=== PATIENT | female | born 1980 | race Caucasian/White ===

== ENCOUNTER 2019-08-27 11:28 | Emergency (ER) | payer OTHER, SELFPAY ==
[2019-08-27 11:30] VITALS: BP 163/92; PULSE 74; RESP 16; TEMP 36.2; O2SAT 97
[2019-08-27] MEDS: FAMOTIDINE 20 MG TABLET PO (11:55)
[2019-08-27] MEDS: predniSONE 20 MG TABLET 60 MG PO (11:55)
--- NOTE | 2019-08-27 13:04 | ED.GENADULT ---
HPI - General Adult General Chief complaint: Skin/Abscess/Foreign Body Stated complaint: Bite, Sent by PCP Time Seen by Provider: 08/27/19 11:30 Source: patient Mode of arrival: ambulatory Limitations: no limitations History of Present Illness HPI narrative: Patient is a 39-year-old female who presents to emergency department for evaluation of bite to the right forearm with redness and swelling that began after the bite woke with the bite notes some itching and burning has not taken anything for her symptoms patient tried cleaning with hydrogen peroxide patient was referred to emergency department for evaluation per request of primary care Related Data Allergies Allergy/AdvReac Type Severity Reaction Status Date / Time Penicillins Allergy Hives Verified 08/27/19 11:43 Sulfa (Sulfonamide Allergy Anaphylactic Verified 08/27/19 11:43 Antibiotics) Shock Review of Systems Review of Systems: All systems reviewed & are unremarkable except as noted in HPI and below PMFSH Social History Social History (Updated 08/27/19 @ 13:05 by Michel Meneses PA-C) Smoking status: Current every day smoker Gender identity (if verbalized by the patient): Female Exam Narrative: Exam Narrative: GENERAL: Well-appearing, well-nourished, and in no acute distress. HEAD: Normocephalic, atraumatic. EYES: PERRLA and EOMI. ENT: Nares clear, no rhinorrhea or epistaxis. Mucous membranes moist. EXTREMITIES: Normal range of motion. No edema. SKIN: Warm, dry, no rash. Patient with 1 cm in diameter red tender area with slight swelling around it nonfluctuant consistent with insect bite no lymphangitic streaking NEURO: No focal deficits. Alert and oriented x3. Neurovascularly intact PSYCH: Normal mood and affect. The patient Course Course Emergency Course: Patient in the room in no distress aware of case findings treatment plan and diagnosis agreeing to follow-up as directed or to return if symptoms worsen or concerns Vital Signs Vital signs: Vital Signs Temperature 97.1 F L 08/27/19 11:30 Pulse Rate 74 08/27/19 11:30 Respiratory Rate 16 08/27/19 11:30 Blood Pressure 163/92 H 08/27/19 11:30 Pulse Oximetry 97 08/27/19 11:30 Temperature 97.1 F L 08/27/19 11:30 Pulse Rate 74 08/27/19 11:30 Respiratory Rate 16 08/27/19 11:30 Blood Pressure 163/92 H 08/27/19 11:30 Pulse Oximetry 97 08/27/19 11:30 Medical Decision Making MDM Narrative Medical decision making narrative: Patient with likely insect bite with allergic response felt appropriate for outpatient reevaluation advised to follow with primary care is agreeing to do so patient is afebrile nontoxic-appearing no distress and felt appropriate for outpatient reevaluation Vital Signs Vital Signs: Vital Signs Temperature 97.1 F L 08/27/19 11:30 Pulse Rate 74 08/27/19 11:30 Respiratory Rate 16 08/27/19 11:30 Blood Pressure 163/92 H 08/27/19 11:30 Pulse Oximetry 97 08/27/19 11:30 Temperature 97.1 F L 08/27/19 11:30 Pulse Rate 74 08/27/19 11:30 Respiratory Rate 16 08/27/19 11:30 Blood Pressure 163/92 H 08/27/19 11:30 Pulse Oximetry 97 08/27/19 11:30 Discharge Plan Discharge Clinical Impression: Insect bites Patient Disposition: Home, Self-Care Condition: Stable Instructions: Antibiotic Form, Insect Bite or Sting (ED) Additional Instructions: Follow up with primary care in the next 2-3 days for re-evaluation Follow patient education sheets return if symptoms worsen or concerns, any increase in redness swelling pain or fever over 100.5 Clean wound with mild soapy water. Apply antibiotic ointment and clean dressing at least three times daily Follow patient education sheets Use topical cortisone cream for itching Prescriptions: New famotidine [Pepcid] 20 mg tablet 20 mg PO BID Qty: 7 RF: 0 loratadine [Claritin] 10 mg tablet 10 mg PO DAILY PRN (Reason: allergy symptoms) Qty: 7 RF: 0 Follow-up/[facility]
== END 2019-08-27 13:26 | disposition home or self-care (01) ==
PROVIDERS: Emergency Provider Emergency Medicine; PCP Family Medicine
DX: S50.861A Insect bite (nonvenomous) of right forearm, initial encounter (principal); W57.XXXA Bitten or stung by nonvenomous insect and other nonvenomous arthropods, initial encounter
CPT/HCPCS: 99283; A9270; J7512

== ENCOUNTER 2020-10-23 07:46 | Outpatient (CLI) | payer OTHER, SELFPAY ==
--- NOTE | ~2020-10-23 | XR_ITS ---
XR abdomen/kub 1V 10/23/2020 08:07 INDICATION: Gross hematuria TECHNIQUE: KUB COMPARISON: None FINDINGS: Bowel gas pattern is normal. There are cholecystectomy clips. There is no evidence of free air, mass, organomegaly, ascites or obstruction. No abnormal calculi are seen. The bones appear int act. Moderate colonic fecal loading. There are cholecystectomy clips. IMPRESSION: 1: No acute abdominal abnormality identified. Reviewed, dictated and finalized at location A.
--- NOTE | ~2020-10-23 | CT_ITS ---
EXAMINATION: CT abdomen pelvis wo/w con DATE: 10/23/2020 08:40 INDICATION: Gross hematuria TECHNIQUE: Computed tomography (CT) of the abdomen and pelvis was performed without intravenous contr ast. CT of the abdomen and pelvis was then performed with a total of 130 mL Omnipaque 350 intravenous contrast using a double-bolus technique for simultaneous opacification of the renal parenchyma and r enal collecting system. The dose-length product (DLP) was 2139.08 mGy-cm. Automated exposure control and iterative reconstruction technique were employed. COMPARISON: None FINDINGS: The lung bases are clear. The heart size is normal. The gallbladder is surgically absent. T here is mild enlargement of the common bile duct and central intrahepatic ducts which is likely due t o post cholecystectomy state. Punctate calcifications in otherwise normal appearing liver and spleen likely represent healed granulomatous disease. The pancreas is unremarkable. There are low density ma sses of the adrenal glands, measuring up to 1.4 cm on the left, consistent with adenomas. No suspicio us renal or urothelial lesion is identified. No stones are identified in the kidneys, ureters, or christine dder. There is no hydronephrosis or hydroureter. A septate uterus is noted. No pathologically enlarge d abdominal or pelvic lymph nodes are identified. There is no free intraperitoneal gas or evidence of bowel obstruction. IMPRESSION: 1. No CT correlate for the patient's symptoms. Reviewed, dictated and finalized at location A.
[2020-10-23 08:16] LABS: Estimated Glomerular Filt Rate > 60
== END 2020-10-23 07:47 | disposition home or self-care (01) ==
LOC: ANHIMG 07:53
PROVIDERS: PCP Family Medicine; Visit Provider Nurse Practitioner Adult Health
DX: R31.0 Gross hematuria (principal)
CPT/HCPCS: 74018; 74178; Q9967

== ENCOUNTER 2022-03-12 07:58 | Emergency (ER) | payer OTHER, SELFPAY ==
--- NOTE | ~2022-03-12 | CT_ITS ---
EXAMINATION: CT abdomen pelvis wo con DATE: 03/12/2022 11:43 INDICATION: Right flank pain. Right groin pain. Hematuria. TECHNIQUE: Computed tomography (CT) of the abdomen and pelvis was performed without intravenous contr ast. Automated exposure control and iterative reconstruction technique were employed. The dose-length product was 421.79 mGy-cm. COMPARISON: CT abdomen and pelvis 10/23/2020 FINDINGS: The visualized portions of the lung bases demonstrate mild atelectasis. No pleural effusion . The heart size is normal. No pericardial effusion. Calcifications in the liver and spleen are consi stent with old granulomatous disease. There are changes of cholecystectomy. The pancreas and right ad renal gland are normal. There is a 14 mm mass in left adrenal gland measuring low attenuation, consis tent with an adenoma. The kidneys are normal. There is no urolithiasis. There is diverticulosis of th e colon without evidence of diverticulitis. There are no dilated loops of bowel. The appendix is norm al. There are no pathologically enlarged lymph nodes. There is no free intraperitoneal fluid. There i s moderate thoracolumbar spondylosis. IMPRESSION: 1. No urolithiasis. Reviewed, dictated and finalized at location A. [employer] IMPRESSION: 1. No urolithiasis.
[2022-03-12 08:27] VITALS: BP 151/94; PULSE 80; RESP 18; TEMP 37.2; O2SAT 99
--- NOTE | 2022-03-12 10:58 | ED.BACK ---
HPI - Back Pain/Injury General Chief Complaint: Back Pain/Injury Stated Complaint: back pain Time Seen by Provider: 03/12/22 10:48 History of Present Illness HPI Narrative: Patient is a 41-year-old female here for evaluation of right flank pain over the past day. She states the pain is sharp and stabbing, originates in her high flank and will wrap around to the front into her groin. States the pain is there constantly but it does go through waves where it will become very intense. She is attempted ibuprofen and Tylenol without relief of her pain. Additionally notes nausea but no vomiting. Denies history of kidney stones. Does note chronic hematuria for which she has had a cystoscopy with Dr. Vega that was reassuring, denies any dysuria urgency or frequency. No shortness of breath, chest pain, cough, fevers. Related Data Allergies Allergy/AdvReac Type Severity Reaction Status Date / Time Penicillins Allergy Hives Verified 08/27/19 11:43 Sulfa (Sulfonamide Allergy Anaphylactic Verified 08/27/19 11:43 Antibiotics) Shock Review of Systems Review of Systems: Gen.: Denies fevers or chills Eyes: Denies eye pain or visual change ENT: Denies congestion Respiratory: Denies shortness of breath or cough CV: Denies chest pain or palpitations GI: Denies abdominal pain nausea, emesis or diarrhea denies burning, urgency, frequency or hematuria Musculoskeletal: Reports right flank pain. Neuro: Denies numbness, tingling, weakness or focal weakness Skin: Denies rash Except as documented, all other systems reviewed and negative PMFSH Social History Social History (Updated 08/27/19 @ 13:05 by Michel Meneses, PALindyC) Smoking status: Current every day smoker Gender identity (if verbalized by the patient): Female Exam Narrative: APPEARANCE: Well appearing, no pain in distress, well-nourished. Head: Normocephalic and atraumatic. EYES: PERRLA/EOMI, conjunctivae clear NOSE: No nasal drainage EARS: External ear normal in appearance THROAT: Oropharynx is clear. Mucous membranes are moist. NECK: Supple. No adenopathy, no masses. RESPIRATORY: Airway patent, respirations nonlabored. Clear to auscultation bilaterally, no rales, rhonchi, wheezing. CARDIOVASCULAR: Regular rate and rhythm without murmurs, rubs, or gallops. ABDOMINAL: Normoactive bowel sounds. Soft, nontender, nondistended. No rebound tenderness or guarding. MUSCULOSKELETAL: No CVA tenderness. Extremities are warm and well-perfused. Moves all extremities well. No edema. NEURO: Normal speech. No focal neurologic deficits. SKIN: No rash over flank. Skin is warm and dry. No rashes. PSYCHIATRIC: Normal affect/mood. Course Vital Signs Vital signs: Vital Signs Temperature 98.9 F 03/12/22 08:27 Pulse Rate 80 03/12/22 08:27 Respiratory Rate 18 03/12/22 08:27 Blood Pressure 151/94 H 03/12/22 08:27 Pulse Oximetry 99 03/12/22 08:27 Oxygen Delivery Room Air 03/12/22 08:27 Temperature 98.9 F 03/12/22 08:27 Pulse Rate 80 03/12/22 08:27 Respiratory Rate 18 03/12/22 08:27 Blood Pressure 151/94 H 03/12/22 08:27 Pulse Oximetry 99 03/12/22 08:27 Oxygen Delivery Room Air 03/12/22 08:27 MDM - Back Pain/Injury MDM Narrative Medical decision making narrative: 41-year-old female here for evaluation of right flank pain radiating into her groin over the past day. Patient is nontoxic-appearing and has normal vital signs, she has no CVA tenderness on exam or rash to suggest shingles. Her UA is unremarkable. She has a slight leukocytosis at 11.1, BUN is 20 but her creatinine is normal. Have no baseline to compare to. CT abdomen pelvis does not show any evidence of urolithiasis, pyelonephritis, or other intra-abdominal pathology. Patient was aware of the left-sided adenoma and it is unchanged in size. unclear etiology of patient's pain today. Declines IV meds in the ED. It is possible that she passed a kidney stone in the ED. She wi
[2022-03-12 11:26] LABS: Basophils Percent Auto 0.3 % (0.2-1.2); Eosinophils Absolute Auto 0.1 K/mm3 (0-0.3); Eosinophils Percent Auto 1.3 % (0-4.4); Hematocrit 43.5 % (37.0-47.0); Hemoglobin 14.1 g/dL (12.0-15.0); Immature Granulocyte Absolute 0.04 K/mm3 (0.00-0.031); Immature Granulocyte Percent A 0.4 % (0-0.5); Lymphocytes Absolute Auto 2.38 K/mm3 (0.9-3.2); Lymphocytes Percent Auto 21.5 % (18.3-44.2); Mean Corpuscular HGB Conc 32.4 g/dl (32-36); Mean Corpuscular Hemoglobin 29.3 pg (26-34); Mean Corpuscular Volume 90.2 fl (80-100); Mean Platelet Volume 9.8 fl (7.4-10.4); Monocytes Absolute Auto 0.5 K/mm3 (0.1-0.6); Monocytes Percent Auto 4.3 % (2.6-8.5); Neutrophils Percent Auto 72.2 % (45.5-73.1); Platelet Count Result 289 k/mm3 (150-375); Red Blood Count 4.82 M/mm3 (4.2-5.4); Red Cell Distribution Width 12.5 % (11.5-14.5); White Blood Count 11.1 K/mm3 (4.5-10.0)
--- NOTE | 2022-03-12 11:30 | PC.NURSE ---
Patient seen and assessed by provider.
[2022-03-12 11:32] LABS: Add Urine Microscopic? YES; Appearance Urine Clear (Clear); Bilirubin Urine Negative (Negative); Blood Urine Trace-Intact (Negative); Color Urine Light Yellow (Yellow); Glucose Urine UA Negative (Negative); Ketones Urine Negative (Negative); Leukocyte Esterase Ur Negative LEU/UL (Negative); Nitrate Urine Negative (Negative); Protein Urine Negative (Negative); Specific Grav Ur 1.015 (1.001-1.035); Urobilinogen Urine 0.2 mg/dL (<2.0); pH Urine 5.5 (5.0-9.0)
[2022-03-12 11:36] LABS: Alanine Aminotransferase 41 U/L (6-35); Albumin Level 4.6 g/dL (3.5-5.1); Alkaline Phosphatase 126 U/L (38-126); Anion Gap 8 mmol/L (8-16); Aspartate Amino Transferase 29 U/L (14-36); Bilirubin,Total 0.5 mg/dL (0.2-1.3); Blood Urea Nitrogen 20 mg/dL (7-17); Calcium 9.3 mg/dL (8.4-10.2); Carbon Dioxide 28 mmol/L (22-30); Chloride 102 mmol/L (98-107); Estimated CRCL calculation 99 ml/min; Estimated Glomerular Filt Rate > 60; Glucose 102 mg/dL (65-110); Potassium 3.7 mmol/L (3.4-5.0); Sodium 138 mmol/L (137-145)
[2022-03-12 11:44] LABS: Bacteria Urine Trace /hpf; Mucus Urine Rare /lpf; RBC Urine 0-2 /hpf (0-2); Squamous Epithelial Cell Urine Rare /hpf (Few); WBC Urine 0-3 /hpf
[2022-03-12] MEDS: HYDROcodone/acetaminophen (*CRX) 5-325 MG TABLET 1 TAB PO (12:16)
== END 2022-03-12 12:32 | disposition home or self-care (01) ==
PROVIDERS: Emergency Medicine; Emergency Provider Physician Assistant; PCP Family Medicine
DX: R10.9 Unspecified abdominal pain (principal); F17.200 Nicotine dependence, unspecified, uncomplicated
CPT/HCPCS: 36415; 74176; 80053; 81001; 81025; 85025; 99284; A9270